=== PATIENT | female | born 1985 | race Hispanic/Latino ===

== ENCOUNTER 2017-04-28 19:57 | Emergency (ER) | payer SELFPAY | END 2017-04-28 20:19 | disposition home or self-care (01) | LOC: ERS 19:57 | DX: M62.830 Muscle spasm of back (principal) | CPT/HCPCS: 99283 ==

== ENCOUNTER 2017-05-27 20:08 | Emergency (ER) | payer SELFPAY ==
[2017-05-27 20:51] LABS: Bilirubin Negative (Negative); Blood, Urine Trace (Negative); Glucose, Urine (Dipstick) Negative (Negative); Ketone, Urine Negative (Negative); Nitrite Positive (Negative); Protein, Urine (Dipstick) Negative (Neg-Trace)
[2017-05-27 20:53] LABS: Bacteria/HPF 4+ HPF (None Seen); Hyaline Casts/LPF 0-3 HYALINE CAST LPF (0-3 Hyaline)
[2017-05-27] MEDS ORDERED: Ondansetron HCl/PF 4 MG/2 ML Vial ONE (20:53)
[2017-05-27] MEDS ORDERED: Pantoprazole 40 MG VIAL ONE (20:53)
[2017-05-27 21:03] LABS: #Basophils 0.1 thou/uL (0.0-0.2); #Eosinphils 0.3 thou/uL (0.0-0.7); #Lymphocytes 3.3 thou/uL (1.20-3.40); #Monocytes 0.7 thou/uL (0.11-0.59); #Neutrophils 7.2 thou/uL (1.40-6.50); %Basophils 0.7 % (0.0-1.0); %Eosinophils 2.6 % (0.0-10.0); %Lymphocytes 28.9 % (21.0-51.0); %Monocytes 5.6 % (0.0-10.0); Hematocrit 42.1 % (36.0-47.0); Mean Platelet Volume 6.5 fL (7.4-10.4); Red Blood Cell (RBC) Count 4.61 mill/uL (4.20-5.40); White Blood Cell (WBC) Count 11.6 thou/uL (4.8-10.8)
[2017-05-27] MEDS ORDERED: cefTRIAXone\\ROCEPHIN 2 GM VIAL ONE (21:13)
[2017-05-27 21:20] LABS: ALT (SGPT) 20 U/L (8-55); AST (SGOT) 17 U/L (5-34); Alkaline Phosphatase 110 U/L (40-150); Anion Gap 11 mmol/L (10-20); BUN (Urea Nitrogen) 12 mg/dL (7.0-18.7); Bilirubin, Total 0.3 mg/dL (0.2-1.2); Calc. Creatinine Clearance 0 mL/min (70-130); Calcium 9.3 mg/dL (7.8-10.44); Carbon Dioxide 26 mmol/L (22-29); Chloride 105 mmol/L (98-107); Estimated GFR-MDRD Greater than 90; Globulin 3.8 g/dL (2.4-3.5); Lipase 31 U/L (8-78)
[2017-05-27] MEDS ORDERED: cefTRIAXone\\ROCEPHIN 2 GM in Sodium Chloride 0.9% 100 ML IVPB SCH (22:00)
[2017-05-28] MEDS ORDERED: Acetaminophen 500 MG TAB ONE (00:40)
== END 2017-05-27 23:09 | disposition home or self-care (01) ==
LOC: ERS 20:08
DX: N39.0 Urinary tract infection, site not specified (principal)
CPT/HCPCS: 80053; 81003; 81015; 81025; 83690; 85025; 87077; 87086; 87186; 94760; 96361; 96365; 96375; C9113; J0696; J2405; J7050

== ENCOUNTER 2017-07-01 19:43 | Emergency (ER) | payer SELFPAY ==
[2017-07-01] MEDS ORDERED: Acetaminophen 500 MG TAB ONE (20:21)
== END 2017-07-01 21:28 | disposition home or self-care (01) ==
LOC: ERS 19:43
DX: B34.9 Viral infection, unspecified (principal)
CPT/HCPCS: 99283

== ENCOUNTER 2017-07-26 14:42 | Emergency (ER) | payer SELFPAY ==
[~2017-07-26 14:42] MED LIST: Fentanyl 100 MCG/2 ML VIAL ONE
[2017-07-26] MEDS ORDERED: predniSONE 20 MG TAB ONE (16:49)
[2017-07-26] MEDS ORDERED: hydrOXYzine 25 MG TAB PO SCH (17:00)
== END 2017-07-26 17:30 | disposition home or self-care (01) ==
LOC: ERS 14:42
DX: T78.40XA Allergy, unspecified, initial encounter (principal)
CPT/HCPCS: 99282; J3010; J7506

== ENCOUNTER 2017-08-11 19:13 | Emergency (ER) | payer SELFPAY ==
--- NOTE | 2017-08-11 21:07 | RAD ---
LEFT SHOULDER THREE VIEWS: 08/11/17 HISTORY: Left shoulder and collar bone pain. FINDINGS/IMPRESSION: No fracture or dislocation or bony destruction seen. POS: ROGELIOH
--- NOTE | 2017-08-11 21:10 | RAD ---
CERVICAL SPINE THREE VIEWS: 08/11/17 HISTORY: Left shoulder and collar bone pain. FINDINGS: No fracture or subluxation or bony destruction seen. Cervical lordosis is maintained. Prevertebral so ft tissues are normal. IMPRESSION: Unremarkable exam. POS: JERAD
== END 2017-08-11 21:20 | disposition home or self-care (01) ==
LOC: ERS 19:13
DX: S43.422A Sprain of left rotator cuff capsule, initial encounter (principal); X50.9XXA Other and unspecified overexertion or strenuous movements or postures, initial encounter
CPT/HCPCS: 72040

== ENCOUNTER 2018-02-18 20:40 | Emergency (ER) | payer BC, SELFPAY ==
[2018-02-18 21:56] LABS: #Basophils 0.1 thou/uL (0.0-0.2); #Eosinphils 0.5 thou/uL (0.0-0.7); #Lymphocytes 3.2 thou/uL (1.20-3.40); #Monocytes 0.5 thou/uL (0.11-0.59); #Neutrophils 4.2 thou/uL (1.40-6.50); %Basophils 1.2 % (0.0-1.0); %Eosinophils 5.4 % (0.0-10.0); %Lymphocytes 37.9 % (21.0-51.0); %Monocytes 5.5 % (0.0-10.0); %Neutrophils 49.9 % (42.0-75.0); Hemoglobin 13.4 g/dL (12.0-16.0); Mean Corpuscular HGB CONC 34.4 g/dL (32.0-36.0); Mean Corpuscular Hemoglobin 31.8 pg (27.0-31.0); Mean Corpuscular Volume 92.4 fL (78.0-98.0); Mean Platelet Volume 6.5 fL (7.4-10.4); Platelet Count 333 thou/uL (130-400); RBC Distribution Width 11.1 % (11.5-14.5); White Blood Cell (WBC) Count 8.5 thou/uL (4.8-10.8)
[2018-02-18 21:58] LABS: Bilirubin Negative (Negative); Blood, Urine Negative (Negative); Clarity CLEAR (Clear); Glucose, Urine (Dipstick) Negative (Negative); Leukocyte Small (Negative); Nitrite Negative (Negative); Protein, Urine (Dipstick) Negative (Neg-Trace); Specific Gravity, Urine 1.023 (1.002-1.036); pH, Urine 6.5 (5.0-9.0)
[2018-02-18 21:59] LABS: Pregnancy Test - Urine (BHCG) Negative (Negative); Pregu Control Background? CLEAR/WHITE (CLR/WHITE); Pregu Control Bar Appear? YES (CONTROL BAR); Specific Gravity 1.023 (1.002-1.036)
[2018-02-18 22:00] LABS: Bacteria/HPF 1+ HPF (None Seen); Hyaline Casts/LPF 0-3 HYALINE CAST LPF (0-3 Hyaline); Pathc Cast-AUWi Flag 0.14 (0-2.49)
[2018-02-18 22:16] LABS: ALT (SGPT) 32 U/L (8-55); AST (SGOT) 22 U/L (5-34); Albumin 4.2 g/dL (3.5-5.0); Alkaline Phosphatase 107 U/L (40-150); Anion Gap 11 mmol/L (10-20); BUN (Urea Nitrogen) 19 mg/dL (7.0-18.7); Bilirubin, Total 0.3 mg/dL (0.2-1.2); Calc. Creatinine Clearance 0 mL/min (70-130); Calcium 8.6 mg/dL (7.8-10.44); Carbon Dioxide 25 mmol/L (22-29); Chloride 106 mmol/L (98-107); Estimated GFR-MDRD Greater than 90; Globulin 3.1 g/dL (2.4-3.5); Glucose 93 mg/dL (70-105); Lipase 28 U/L (8-78); Potassium 3.6 mmol/L (3.5-5.1); Protein, Total 7.3 g/dL (6.0-8.3); Sodium 138 mmol/L (136-145)
[2018-02-18] MEDS ORDERED: HYDROcodone/Acetaminophen 10/325 mg Tablet ONE (22:18)
[2018-02-18] MEDS ORDERED: Mag-Al 1200 mg/1200 mg/30 ML UDCUP ONE (22:19)
[2018-02-18] MEDS ORDERED: Lidocaine Viscous Sol 2% 15 ml UD Cup ONE (22:19)
--- NOTE | 2018-02-18 23:50 | ULT ---
RIGHT UPPER QUADRANT ULTRASOUND 02/18/18 HISTORY: Epigastric abdominal pain. Nausea and vomiting. COMPARISON: 06/21/14 FINDINGS: Limited visualized portions of the pancreas demonstrate a normal sonographic appearance. There is a small echogenic focus measuring 4 to 5 mm along the wall of the gallbladder which may repr esent a small gallbladder polyp. No gallbladder calculus is seen. This was not present on the prior e xam of 2013 although the gallbladder is incompletely distended on that exam. There is no gallbladder wall thickening or pericholecystic fluid seen. The common duct measures 0.3 cm in diameter which is w ithin normal limits. The liver, visualized portions of the IVC and right kidney demonstrate a normal sonographic appearanc e. The right kidney measures 9.9 cm in length. IMPRESSION: Findings likely related to small gallbladder polyp. No gallbladder calculi are seen, and the common d uct is normal in caliber. POS: JERAD
== END 2018-02-18 23:22 | disposition home or self-care (01) ==
LOC: ERS 20:40
DX: R10.9 Unspecified abdominal pain (principal); N39.0 Urinary tract infection, site not specified
CPT/HCPCS: 36415; 76705; 80053; 81003; 81015; 81025; 83690; 85025

== ENCOUNTER 2022-12-09 18:11 | Emergency (ER) | payer MEDICAID, SELFPAY ==
[2022-12-09] MEDS ORDERED: Boostrix 0.5 ML (Tdap) VIAL (>/=7 yrs of age) ONE (20:27)
== END 2022-12-09 20:22 | disposition home or self-care (01) ==
LOC: ERS 18:11
DX: S81.811A Laceration without foreign body, right lower leg, initial encounter (principal); W26.9XXA Contact with unspecified sharp object(s), initial encounter; Z23 Encounter for immunization
CPT/HCPCS: 12001; 90471; 90715